=== PATIENT | male | born 1960 | race Caucasian/White ===

== ENCOUNTER 2024-08-26 06:56 | Day surgery (SDC) | payer MEDICARE, SELFPAY | END 2024-08-26 08:17 | disposition home or self-care (01) | LOC: CATH 06:56 | PROVIDERS: ATTENDING PHYSICIAN Internal Medicine Cardiovascular Disease; FAMILY PHYSICIAN General Practice; OTHER PHYSICIAN Internal Medicine Cardiovascular Disease | DX: I48.0 Paroxysmal atrial fibrillation (principal); I10 Essential (primary) hypertension; Z82.49 Family history of ischemic heart disease and other diseases of the circulatory system; Z79.01 Long term (current) use of anticoagulants | CPT/HCPCS: 33285; C1764 ==

== ENCOUNTER 2024-08-28 07:46 | Day surgery (SDC) | payer MEDICARE, SELFPAY ==
[2024-08-19 08:00] VITALS: BMI 25.5
--- NOTE | 2024-08-26 07:54 | ITS.CL.IMPLP ---
Cardroom Hand - Implant Loop
Implant Loop
Procedure Report:
Date of Procedure: 08/26/24
Primary Care Provider: Dr Hawa Vázquez
Primary mechanical car checker: Dr Andrea Frye
Primary Postpartum Nurse: Dr Joey Butler
Procedure: Insertable Loop Recorder Implantation
Indication:
Atrial fibrillation
Procedure:
The patient was brought to the procedure area in a fasting state. The anterior chest was prepped and draped in standard sterile fashion. The fourth intercostal space along the left sternal border was identified and this area was anesthetized with 10
mL of 1% lidocaine. After gathering the skin in this area, a small punch incision was made at approx intercostal space 4-5 at left costo-sternal junction using the provided scalpel/punch tool. The loop recorder was loaded into the tunneling device.
A tunnel was created in the subcutaneous tissue at a 45� angle along the coronal plane away from the sternum and towards the left flank. The tunneling device was inverted and the plunger was depressed, inserting the loop recorder into the
subcutaneous space. The tunneling device was removed. Manual pressure provide hemostasis. Adequate signal was confirmed. The skin was closed with steri-strips. The estimated blood loss was < 1 cc. A clean dressing was placed over the wound.
There were no complications.
Implant:
[employer] Reveal LINQ
Conclusion: Uncomplicated implantation of loop recorder.
Recommendation: Routine ILR care.
Copy:
Dr Hawa Vázquez
Dr Andrea Frye
Dr Joey Butler
[2024-08-28] VITALS (12 sets, daily range): BP systolic 120–142; BP diastolic 71–86; BMI 24.7
[2024-08-28] MEDS: NSS 1000 IV (08:25)
--- NOTE | 2024-08-28 09:21 | W.PN.UPDATE ---
Update Note
Progress Note Update
Reviewed bedside 2D echo pictures. EF% 62 by method of discs. LA size in AP dimension 4.1-4.2. LA volume 20.8
Will proceed with Smile AF trial and randomization.
[2024-08-28 10:56] LABS: ACT-LR - POC 240 Seconds (116-155)
[2024-08-28 11:11] LABS: ACT-LR - POC 189 Seconds (116-155)
[2024-08-28 11:16] LABS: ACT-LR - POC 242 Seconds (116-155)
--- NOTE | 2024-08-28 11:50 | ITS.CL.ABL ---
[facility] - Ablation
Ablation
Procedure Report:
ELECTROPHYSIOLOGY ABLATION STUDY
DATE:: August 28, 2024�����������������������������REFERRING: Dr. Andrea Frye
INDICATION: Paroxysmal supraventricular tachycardia in the form of atrial fibrillation.��Recent ILR implant. Patient enrolled in the smile AF trial randomizing to PVI versus PVI plus posterior wall
HISTORY: See H and P.��As above
ANTIARRHYTHMIC DRUG: Flecainide
PRE-PROCEDURE ONELIA: No atrial thrombus on intracardiac ultrasound. Transthoracic echocardiogram demonstrated a 4.1 to 4.2 cm left atrial size with a 20.8 left atrial area.
PRESENTING RHYTHM: Sinus rhythm
'TIME-OUT':��called and confirmed.
SEDATION/ANESTHESIA:��provided via the anesthesia department using general anesthesia (LMA).
INTRAVENOUS/ARTERIAL ACCESS:
Right femoral venous - 8Fr
Left femoral venous - 8 Fr, 6 Fr
[id number] suture to bilateral femoral veins
Ultrasound guidance for bilateral femoral vein access was utilized by me to obtain access with demonstration of normal anatomy
CHADS-VASC Score:
HAS-Bled Score
PROCEDURE:
1.��A decapolar CS catheter was placed within the CS for mapping and pacing.��This was also used as the reference catheter for the 3-D map.
2. The intracardiac ultrasound catheter was positioned in the RA to identify the FO for targeting of transseptal puncture, assist��in identification of the pulmonary vein ostia, monitoring pre and post ablation pulmonary vein flow velocities,
monitoring for 'bubble' formation during RF application as a sign of thermal injury,��and to monitor for pericardial effusion during mapping and ablation procedure.���Left atrial size, LV ejection fraction, and pulmonary vein flows were monitored
pre and post ablation procedure. The other valves were inspected and found to be free of significant regurgitation or stenosis.
3.��Half of the calculated heparin bolus was administered prior to the first transeptal puncture.��Transseptal puncture was performed to diagnose RA and LA pressure so that safety of LA mapping and ablation could be further assessed, and to access
the left atrium and pulmonary veins for mapping and ablation.��This entailed advancing an 8 Fr SL-1 sheath with dilator into the superior vena cava and withdrawing both (monitoring intracardiac ultrasound, fluoroscopy and tip pressure) with the tip
oriented toward the atrial septum.��The fossa ovalis was engaged (indicated by sudden displacement of the sheath tip as well as tenting of the fossa seen on intracardiac ultrasound).��Left atrial access required a pass with the Brockenbrough needle
extended.��Left atrial catheter position was confirmed by pressure monitoring (RA mean pressure 4 mm Hg and LA mean pressure 9 mm Hg), LA saturation ( 99 %),��as well as fluoroscopy.��The sheath was advanced over the dilator and positioned in the
left atrium.��This procedure was repeated for the Agilis sheath.��The remainder of the calculated heparin bolus was administered and heparin was
infused to maintain ACT at 300 -350 seconds throughout the case.
4.��RA pacing was performed via the proximal decapolar poles and LA pacing was performed via the distal decapolr poles.
5. A quadrapolar catheter was first positioned at the His position for His Bundle recording which was tagged via the 3-D Navex sytem, and then passed to the RVA for RV pacing and recording.
6. The multipolar catheter and the PFA catheter placed in each of the LIPV, LSPV, RSPV and the RIPV.��
7.��Next, a 3-D map was created using Navex.���A 3-D reconstructed CT image was compared to the 3-D Navex map to assist in anatomic interpretation, mapping and ablation.��The CT image and the NavX image were fused.
8. A total of 59 lesions were given with olive and basket post to the pulmonary veins and flower post to the roof posterior wall and floor. As part of the smile AF protocol a 1.5 cm distance from the left inferior to right inferior line was
fashioned on the posterior wall and floor. Patient's anatomy was somewhat anomalous given an extremely inferior and posterior right inferior pulmonary vein and the mitral valve annulus was more posterior and laterally displaced beneath the left
inferior pulmonary vein. A 20-minute waiting period was given after isolation of each of the pulmonary veins and entrance and exit block was confirmed all 4 pulmonary veins. Additional lesions were given after the initial pass in the floor of the
left atrium to meet the 1.5 cm distance from inferior line to the most inferior point of posterior wall isolation.
9. Normal sinus node and AV node function. The patient was noninducible after isolation of the posterior wall floor roof and pulmonary veins. The phrenic nerve was paced with capture.
TOTAL FLOURO TIME: 15.6 minutes 128 mGy
TOTAL RF DURATION: 0 minutes
REVERSAL OF HEPARIN: 35 mg of protamine, slow IV administration
COMPLICATIONS:
None
Intracardiac US shows no pericardial effusion post ablation.
SUMMARY:��
Complex left atrial mapping and ablation.
Isolation of all 4 pulmonary veins including the roof posterior wall and floor of the left atrium. 15 mm distance from inferior posterior wall down to the most inferior portion of isolation in the floor of the left atrium. The mitral annulus was
somewhat posterior and laterally directed and the right inferior pulmonary vein was inferior and posteriorly directed. The ILR will be adjusted post procedure for 6-minute AF duration and bedside echocardiogram demonstrated a 4.1 to 4.2 cm left
atrial size.
RECOMMENDATIONS:
1. Repeat labs this afternoon and physical exam this afternoon
2. Ambulate in 4 hours
3.��Resume on a coagulation and discontinue flecainide
4.��Consider same-day discharge
Copy to: Dr. Andrea Frye
[2024-08-28 14:51] LABS: Hematocrit 41.7 % (39.0-52.0); Hemoglobin 14.1 g/dL (13.0-18.0); Mean Corp Hgb Conc. 33.8 g/dL (33.0-37.0); Mean Corpuscular Volume 91.6 fL (80.0-94.0); Mean Platelet Volume 10.2 fL (7.4-10.4); Platelet Count 250 10^3/uL (130-400); Red Blood Cell Count 4.55 10^6/uL (4.70-6.10); Red Cell Dist. Width 12.8 % (11.5-14.5); White Blood Cell Count 18.3 10^3/uL (4.8-10.8)
[2024-08-28 15:09] LABS: Blood Urea Nitrogen 26 mg/dl (9-20); Calcium 8.6 mg/dl (8.4-10.2); Carbon Dioxide 26 mmol/L (22-30); Chloride 106 mmol/L (98-107); Estimated Creatinine Clearance 86 ml/min; Glucose 125 mg/dl (70-99); Potassium 4.4 mmol/L (3.5-5.1); Sodium 138 mmol/L (135-145); eGFR > 60.00
[2024-08-28] MEDS: ANESTHETIC LOZENGE 1 LOZENGE PO (15:49)
--- NOTE | 2024-08-28 16:27 | W.PN.UPDATE ---
Update Note
Progress Note Update
63 yo WM s/p PVI (same day). He denies cp, sob, yolanda diet, voiding, R fem site c/d/i soft, EKG SR. He will resume Eliquis after 6pm tonight. He will stop flecainide and continue diltiazem. Activity restrictions reviewed. He will f/u Dr. Frye in 2
mo. He is for d/c home after 430p.
SUMMARY:��
Complex left atrial mapping and ablation.
Isolation of all 4 pulmonary veins including the roof posterior wall and floor of the left atrium. 15 mm distance from inferior posterior wall down to the most inferior portion of isolation in the floor of the left atrium. The mitral annulus was
somewhat posterior and laterally directed and the right inferior pulmonary vein was inferior and posteriorly directed. The ILR will be adjusted post procedure for 6-minute AF duration and bedside echocardiogram demonstrated a 4.1 to 4.2 cm left
atrial size.
--- NOTE | 2024-08-28 17:15 | PTCARENOTE ---
Spoke with Hamida WINSTON, pt ambulated in hallway and voided large amount in bathroom without difficulty, right groin dressing dry and intact with no hematoma noted after activity. Order received to cancel admission and discharge pt at this time.
== END 2024-08-28 17:20 | disposition home or self-care (01) ==
LOC: CATH 07:46
PROVIDERS: Nurse Practitioner Adult Health; ATTENDING PHYSICIAN Internal Medicine Cardiovascular Disease; FAMILY PHYSICIAN General Practice; OTHER PHYSICIAN Internal Medicine Cardiovascular Disease
DX: I48.0 Paroxysmal atrial fibrillation (principal); I11.9 Hypertensive heart disease without heart failure; E78.5 Hyperlipidemia, unspecified; I47.19 Other supraventricular tachycardia; Z79.01 Long term (current) use of anticoagulants; Z79.899 Other long term (current) drug therapy; Z98.890 Other specified postprocedural states
CPT/HCPCS: C1894; C1732; C1730; C1892; C1759; 80048; 85027; 85347; 86900; 86901; 93005; 93656; 93657; C1733; C1766